=== PATIENT | female | born 1955 | race Caucasian/White ===

== ENCOUNTER 2023-10-25 09:47 | Inpatient (IN) | payer MEDICARE ==
[~2023-10-25] VITALS: Ht 160 cm; Wt 127.9 kg
[2023-10-25 09:47] VITALS: BP_SYST 146; PULSE 80; RESP 22; TEMP 98.3; O2SAT 96
[2023-10-25] MEDS ORDERED: iohexoL 350 mgI/mL, 100 ML INFUS..BTL IV ONE (10:00)
[2023-10-25 10:36] LABS: BASOPHILS # (AUTO) 0.1 K/uL (0.0-0.2); BASOPHILS % (AUTO) 0.5 % (0.0-2.0); EOSINOPHILS # (AUTO) 0.2 K/uL (0.0-0.4); EOSINOPHILS % (AUTO) 1.3 % (0.0-4.0); HEMATOCRIT 22.2 % (36-48); HEMOGLOBIN 7.4 g/dL (12.0-16.0); LYMPHOCYTES # (AUTO) 1.2 K/uL (1.0-5.5); LYMPHOCYTES % (AUTO) 8.9 % (20.5-51.5); MEAN CORPUSCULAR HEMOGLOBIN 29 pg (27-31); MEAN CORPUSCULAR HGB CONC 33 % (32-36); MEAN CORPUSCULAR VOLUME 86 fL (79.0-98.0); MONOCYTES # (AUTO) 1.1 K/uL (0.0-1.0); MONOCYTES % (AUTO) 7.9 % (1.7-9.3); NEUTROPHILS # (AUTO) 11.2 K/uL (1.8-7.7); NEUTROPHILS % (AUTO) 81.4 % (40.0-70.0); PLATELET COUNT (AUTO) 205 K/uL (130-430); RED BLOOD CELL COUNT(AUTO) 2.58 MIL/uL (4.2-6.2); RED CELL DISTRIBUTION WIDTH 16.5 % (9.0-15.0); WHITE BLOOD COUNT (AUTO) 13.8 K/uL (4.8-10.8)
[2023-10-25 10:53] LABS: ANION GAP 12 (5-15); CALCIUM 7.9 mg/dL (8.4-11.0); CARBON DIOXIDE 24 mmol/L (23-29); CHLORIDE 107 mmol/L (98-107); CREATININE 1.68 mg/dL (0.55-1.30); GFR AFRICAN AMERICAN 39 mL/min (>90); GLUCOSE 166 mg/dL (74-106); POTASSIUM 4.1 mmol/L (3.5-5.1); SODIUM SERUM 143 mmol/L (136-145); UREA NITROGEN, BLOOD 26 mg/dL (8-21)
[2023-10-25 10:55] LABS: GFR NON AFRICAN-AMERICAN 32 mL/min (>90)
[2023-10-25 11:00] LABS: ALANINE AMINOTRANSFERASE 25 U/L (12-78); ALBUMIN 2.3 g/dL (3.4-4.8); ASPARTATE AMINOTRANSFERASE 21 U/L (10-37); BILIRUBIN,DIRECT 0.1 mg/dL (0.0-0.3); CHOLESTEROL 100 mg/dL (<200); HDL CHOLESTEROL 51 mg/dL (>55); PROTHROMBIN TIME 20.3 SECS (9.5-12.5); TOTAL BILIRUBIN 0.3 mg/dL (0.0-1.0); TOTAL PROTEIN, SERUM 6.6 g/dL (6.4-8.3); TRIGLYCERIDES 55 mg/dL (30-150)
[2023-10-25 11:11] LABS: HEMOGLOBIN A1C 7.51 % (<5.7)
[2023-10-25] MEDS ORDERED: ASPIRIN 300 MG/SUPP.RECT SUPP RC ONE (11:30)
[2023-10-25 11:50] LABS: BILIRUBIN,URINE NEGATIVE (NEGATIVE); BLOOD, URINE 2+ (NEGATIVE); CLARITY/URINE CLEAR (CLEAR); COLOR,URINE YELLOW (YELLOW); GLUCOSE,URINE TRACE (NEGATIVE); KETONES,URINE NEGATIVE (NEGATIVE); LEUKOCYTE ESTERASE ,URINE NEGATIVE (NEGATIVE); NITRITE, URINE NEGATIVE (NEGATIVE); PROTEIN URINE 2+ (NEGATIVE); UROBILINOGEN,URINE 0.2 (0.2-1.0)
[2023-10-25 12:10] LABS: BACTERIA,URINE RARE /HPF (None Seen); YEAST,URINE Moderate /HPF (None Seen)
[2023-10-25] MEDS ORDERED: INSULIN LISPRO SLIDING SCALE 100 UNITS/ML, 3 ML VIAL (humaLOG) SUBCUT PRN (14:45)
[2023-10-25] MEDS ORDERED: DEXTROSE 50% JECT 50 ML DISP.SYRIN IVP PRN (14:45)
[2023-10-25] MEDS ORDERED: ACETAMINOPHEN 325 MG TABLET PO PRN ×2 (14:45)
[2023-10-25] MEDS ORDERED: QUET25TA36 PO (15:35)
[2023-10-25] MEDS ORDERED: DABI150C PO (15:35)
[2023-10-25] MEDS ORDERED: ATOR40TA68 PO (15:35)
[2023-10-25] MEDS ORDERED: NITR0.4T47 SL (15:35)
[2023-10-25] MEDS ORDERED: METO25TA6 PO (15:35)
[2023-10-25] MEDS ORDERED: FURO-150 PO (15:41)
[2023-10-25] MEDS ORDERED: POTA-195 PO (15:41)
[2023-10-25] MEDS ORDERED: ASPI-524 PO (15:41)
[2023-10-25] MEDS ORDERED: HYDROcodone/ACETAMIN 5-325 MG TAB (NORCO/ VICODIN) PO PRN (15:45)
[2023-10-25] MEDS: HALOPERIDOL LACTATE 5 MG/ML VIAL IM PRN ×2 (16:16→22:26)
[2023-10-25 16:30] VITALS: BP_SYST 147; PULSE 87; RESP 18; TEMP 98.7; O2SAT 96
[2023-10-25] MEDS: NACL 0.9% 1,000 ML IV SCH (18:46)
[2023-10-25 20:01] VITALS: BP_SYST 133; PULSE 87; RESP 20; TEMP 97.9; O2SAT 98
[2023-10-25] MEDS: ATORVASTATIN 20 MG TABLET PO SCH (21:00)
[2023-10-26 01:28] VITALS: BP_SYST 141; PULSE 92; RESP 18; TEMP 98.5; O2SAT 95
[2023-10-26 05:38] LABS: BASOPHILS % (AUTO) 0.3 % (0.0-2.0); MEAN CORPUSCULAR HEMOGLOBIN 28 pg (27-31)
[2023-10-26] MEDS: HALOPERIDOL LACTATE 5 MG/ML VIAL IM PRN (05:50)
[2023-10-26 06:07] LABS: EOSINOPHILS # (AUTO) 0.3 K/uL (0.0-0.4); EOSINOPHILS % (AUTO) 1.9 % (0.0-4.0); LYMPHOCYTES # (AUTO) 1.3 K/uL (1.0-5.5); LYMPHOCYTES % (AUTO) 10.2 % (20.5-51.5); MEAN CORPUSCULAR HGB CONC 32 % (32-36); MEAN CORPUSCULAR VOLUME 86 fL (79.0-98.0); MONOCYTES % (AUTO) 7.4 % (1.7-9.3); NEUTROPHILS # (AUTO) 10.5 K/uL (1.8-7.7); NEUTROPHILS % (AUTO) 80.2 % (40.0-70.0); PLATELET COUNT (AUTO) 208 K/uL (130-430); RED CELL DISTRIBUTION WIDTH 16.2 % (9.0-15.0); WHITE BLOOD COUNT (AUTO) 13.1 K/uL (4.8-10.8)
[2023-10-26 06:13] LABS: CREATININE 1.43 mg/dL (0.55-1.30); POTASSIUM 3.7 mmol/L (3.5-5.1); TOTAL BILIRUBIN 0.4 mg/dL (0.0-1.0)
[2023-10-26 06:30] LABS: HEMATOCRIT 20.6 % (36-48); HEMOGLOBIN 6.7 g/dL (12.0-16.0)
[2023-10-26 07:18] LABS: ERYTHROCYTE SEDIMENTATION RATE 36 MM/HR (0-20)
[2023-10-26] MEDS: DOCUSATE SODIUM 100 MG CAPSULE PO SCH ×3 (09:00→09:35)
[2023-10-26] MEDS: PANTOPRAZOLE SODIUM 40 MG TAB PO SCH ×2 (09:00→09:25)
[2023-10-26 09:14] VITALS: BP_SYST 130; PULSE 86; RESP 16; TEMP 98.1; O2SAT 94
[2023-10-26] MEDS: ASPIRIN 81 MG TAB.CHEW PO SCH (09:25)
[2023-10-26] MEDS: NACL 0.9% 1,000 ML IV SCH (11:00)
[2023-10-26 11:52] VITALS: BP_SYST 133; PULSE 81; RESP 16; TEMP 98.6; O2SAT 97
[2023-10-26 16:20] VITALS: BP_SYST 148; PULSE 90; RESP 17; TEMP 98.1; O2SAT 94
[2023-10-26 16:21] VITALS: O2SAT 94
[2023-10-26 20:00] VITALS: BP_SYST 134; PULSE 85; RESP 20; TEMP 99; O2SAT 96
[2023-10-26] MEDS: QUEtiapine FUMARATE 25 MG TABLET PO SCH (21:16)
[2023-10-26] MEDS: D5NS 1,000 ML IV SCH (21:16)
[2023-10-26] MEDS: ATORVASTATIN 20 MG TABLET PO SCH (21:16)
[2023-10-27] MEDS: HALOPERIDOL LACTATE 5 MG/ML VIAL IM PRN (00:41)
[2023-10-27 01:03] VITALS: BP_SYST 130; PULSE 80; RESP 19; TEMP 97.8; O2SAT 95
[2023-10-27] MEDS ORDERED: LORazepam 2 MG/ML VIAL IVP PRN (05:30)
[2023-10-27 08:16] VITALS: BP_SYST 137; PULSE 77; RESP 16; TEMP 97.4; O2SAT 98
[2023-10-27 08:28] LABS: CALCIUM 8.1 mg/dL (8.4-11.0); CREATININE 1.29 mg/dL (0.55-1.30); POTASSIUM 3.9 mmol/L (3.5-5.1)
[2023-10-27 08:32] LABS: BASOPHILS # (AUTO) 0.1 K/uL (0.0-0.2); BASOPHILS % (AUTO) 0.6 % (0.0-2.0); EOSINOPHILS # (AUTO) 0.4 K/uL (0.0-0.4); EOSINOPHILS % (AUTO) 3.3 % (0.0-4.0); HEMATOCRIT 25.8 % (36-48); HEMOGLOBIN 8.6 g/dL (12.0-16.0); LYMPHOCYTES # (AUTO) 1.3 K/uL (1.0-5.5); LYMPHOCYTES % (AUTO) 11.9 % (20.5-51.5); MEAN CORPUSCULAR HEMOGLOBIN 29 pg (27-31); MEAN CORPUSCULAR HGB CONC 33 % (32-36); MEAN CORPUSCULAR VOLUME 86 fL (79.0-98.0); MONOCYTES # (AUTO) 0.8 K/uL (0.0-1.0); MONOCYTES % (AUTO) 7.1 % (1.7-9.3); NEUTROPHILS # (AUTO) 8.3 K/uL (1.8-7.7); NEUTROPHILS % (AUTO) 77.1 % (40.0-70.0); PLATELET COUNT (AUTO) 221 K/uL (130-430); RED BLOOD CELL COUNT(AUTO) 3.02 MIL/uL (4.2-6.2); RED CELL DISTRIBUTION WIDTH 17.7 % (9.0-15.0)
[2023-10-27 08:40] LABS: WHITE BLOOD COUNT (AUTO) 10.8 K/uL (4.8-10.8)
[2023-10-27] MEDS: PANTOPRAZOLE SODIUM 40 MG TAB PO SCH (09:00)
[2023-10-27] MEDS: ASPIRIN 81 MG TAB.CHEW PO SCH (09:00)
[2023-10-27] MEDS: DOCUSATE SODIUM 100 MG CAPSULE PO SCH (09:00)
[2023-10-27] MEDS: D5NS 1,000 ML IV SCH (10:47)
[2023-10-27 11:30] VITALS: BP_SYST 140; PULSE 81; RESP 19; TEMP 98.3; O2SAT 96
[2023-10-27 17:28] VITALS: BP_SYST 150; PULSE 80; RESP 18; TEMP 98.4; O2SAT 98
[2023-10-27 20:05] VITALS: BP_SYST 141; PULSE 77; RESP 20; TEMP 97.7; O2SAT 98
[2023-10-27] MEDS: ATORVASTATIN 20 MG TABLET PO SCH (21:00)
[2023-10-27] MEDS: QUEtiapine FUMARATE 25 MG TABLET PO SCH (21:00)
[2023-10-28 00:04] VITALS: BP_SYST 150; PULSE 69; RESP 19; TEMP 97.2; O2SAT 97
[2023-10-28 00:39] VITALS: BP_SYST 150; PULSE 69; RESP 19; TEMP 97.2; O2SAT 97
[2023-10-28] MEDS ORDERED: FLUCONAZOLE 100 MG TABLET (DIFLUCAN) PO SCH (09:00)
== END 2023-10-28 01:30 | disposition short-term general hospital (02) | DRG 64 ==
LOC: SED 09:47 → STU 14:41
PROVIDERS: ADMIT Internal Medicine; ATTEND Internal Medicine
PROC: 30233N1 Transfusion of Nonautologous Red Blood Cells into Peripheral Vein, Percutaneous Approach (ICD-10-PCS; principal; 2023-10-26)
DX: I63.40 Cerebral infarction due to embolism of unspecified cerebral artery (principal); G93.41 Metabolic encephalopathy; I33.0 Acute and subacute infective endocarditis; I76 Septic arterial embolism; G45.9 Transient cerebral ischemic attack, unspecified; I69.351 Hemiplegia and hemiparesis following cerebral infarction affecting right dominant side; N17.9 Acute kidney failure, unspecified; E78.5 Hyperlipidemia, unspecified; I12.9 Hypertensive chronic kidney disease with stage 1 through stage 4 chronic kidney disease, or unspecified chronic kidney disease; E11.22 Type 2 diabetes mellitus with diabetic chronic kidney disease; N18.9 Chronic kidney disease, unspecified; D63.1 Anemia in chronic kidney disease; E11.51 Type 2 diabetes mellitus with diabetic peripheral angiopathy without gangrene; F03.90 Unspecified dementia, unspecified severity, without behavioral disturbance, psychotic disturbance, mood disturbance, and anxiety; Z88.2 Allergy status to sulfonamides; Z86.79 Personal history of other diseases of the circulatory system
CPT/HCPCS: 36415; 70450; 70496; 70498; 71045; 76376; 80048; 80053; 80061; 80076; 81000; 81001; 81015; 82962; 83037; 84484; 85025; 85610-TC; 85651-TC; 85730-TC; 86886; 86900; 86901; 86920; 87040; 87086; 92523; 92610-GN; 93005; 93306; 97116-GP; 97530-GP; 99291; G0378; J0696; J1630; J2060; J7060; P9021; Q9967